=== PATIENT | female | born 1965 | race Two or more races ===

== ENCOUNTER 2022-12-16 19:11 | Emergency (ER) | payer MEDICAID ==
[~2022-12-16] VITALS: Ht 149.9 cm; Wt 73.0 kg
[2022-12-16] MEDS ORDERED: IBUPROFEN 600 MG TAB PO ONE (19:30)
[2022-12-16 20:23] VITALS: BP 103/57; PULSE 69; RESP 17; O2SAT 99
[2022-12-16] MEDS ORDERED: IBUP1TAB5 PO (20:28)
[2022-12-16] MEDS ORDERED: HYDR-4902 PO (20:28)
[2022-12-16 20:57] VITALS: TEMP 98
== END 2022-12-16 21:02 | disposition home or self-care (01) ==
LOC: ER 19:11
DX: S40.011A Contusion of right shoulder, initial encounter (principal); W18.39XA Other fall on same level, initial encounter; Y93.89 Activity, other specified; Y92.89 Other specified places as the place of occurrence of the external cause; Y99.8 Other external cause status
CPT/HCPCS: 73030